=== PATIENT | female | born 1980 | race Caucasian/White ===

== ENCOUNTER 2019-11-04 10:55 | Emergency (ER) | payer MEDICAID ==
--- NOTE | 2019-11-04 11:53 | ER Document Report ---
ED Medical Screen (RME) - General Chief Complaint: Vaginal Bleeding Stated Complaint: VAGINAL BLEEDING Time Seen by Provider: 11/04/19 11:48 Primary Care Provider: ROBERTO HERNANDEZ MD [Primary Care Provider] - Follow up as needed - HPI Notes: 11/04/19 11:52 39-year-old female 4 para 3, 7 weeks presents emergency room with light brown spotting that started last night with spotting today. Patient states that she is used 1 mini pad. Denies any fevers or chills. Eating and drinking without any issues. Denies prior history of miscarriage. Denies any abdominal pain, lower back pain. Denies any chest pain or shortness of breath, no nausea vomiting or diarrhea I have greeted and performed a rapid initial assessment of this patient. A comprehensive ED assessment and evaluation of the patient, analysis of test results and completion of the medical decision making process will be conducted by additional ED providers. PHYSICAL EXAMINATION: GENERAL: Well-appearing, well-nourished and in no acute distress. CV: s1, s2 regular LUNGS: No respiratory distress NEUROLOGICAL: Normal speech, normal gait. SKIN: Warm, Dry, normal turgor, no rashes or lesions noted. Physical Exam - Vital signs Vitals: Temp Pulse Resp BP Pulse Ox 98.4 F 91 18 153/74 H 100 11/04/19 11:13 11/04/19 11:13 11/04/19 11:13 11/04/19 11:13 11/04/19 11:13 Course - Vital Signs Vital signs: Temp Pulse Resp BP Pulse Ox 98.4 F 91 18 153/74 H 100 11/04/19 11:13 11/04/19 11:13 11/04/19 11:13 11/04/19 11:13 11/04/19 11:13 Doctor's Discharge - Discharge Referrals: ROBERTO HERNANDEZ MD [Primary Care Provider] - Follow up as needed
[2019-11-04 13:01] LABS: ABSOLUTE LYMPHOCYTES (AUTO) 1.1 10^3/uL (0.5-4.7); ABSOLUTE MONOCYTES (AUTO) 0.4 10^3/uL (0.1-1.4); ABSOLUTE NEUT (AUTO) 6.7 10^3/uL (1.7-8.2); BASOPHILS % (AUTO) 0.5 % (0-2); EOSINOPHILS % (AUTO) 0.3 % (0-6); HEMATOCRIT 41.6 % (36.0-47.0); HEMOGLOBIN 14.8 g/dL (12.0-15.5); LYMPHOCYTES % (AUTO) 12.8 % (13-45); MEAN CORPUSCULAR HEMOGLOBIN 33.2 pg (27.0-33.4); MEAN CORPUSCULAR HGB CONC 35.7 g/dL (32.0-36.0); MEAN CORPUSCULAR VOLUME 93 fl (80-97); MONOCYTES % (AUTO) 5.4 % (3-13); PLATELET COUNT 298 10^3/uL (150-450); RED BLOOD COUNT 4.47 10^6/uL (3.72-5.28); RED CELL DISTRIBUTION WIDTH 12.8 % (11.5-14.0); TOTAL CELLS COUNTED % (AUTO) 100 %; WHITE BLOOD COUNT 8.3 10^3/uL (4.0-10.5)
[2019-11-04 13:15] LABS: APPEARANCE,URINE CLEAR; BILIRUBIN,URINE NEGATIVE (NEGATIVE); GLUCOSE, URINE NEGATIVE (NEGATIVE); KETONES,URINE 20 mg/dL (NEGATIVE); LEUKOCYTE ESTERASE,URINE TRACE (NEGATIVE); NITRITE,URINE NEGATIVE (NEGATIVE); PROTEIN,URINE 100 mg/dL (NEGATIVE); URINE SPECIFIC GRAVITY 1.015; UROBILINOGEN,URINE NEGATIVE mg/dL (<2.0)
[2019-11-04 13:16] LABS: COLOR,URINE RED
[2019-11-04 13:30] LABS: ALBUMIN 4.9 g/dL (3.5-5.0); ALKALINE PHOSPHATASE 60 U/L (38-126); ANION GAP 9 (5-19); ASPARTATE AMINO TRANSFERASE 24 U/L (14-36); BILIRUBIN,TOTAL 0.6 mg/dL (0.2-1.3); BLOOD UREA NITROGEN 9 mg/dL (7-20); CARBON DIOXIDE 27 mmol/L (22-30); CHLORIDE 104 mmol/L (98-107); GLUCOSE 102 mg/dL (75-110); POTASSIUM 4.8 mmol/L (3.6-5.0); TOTAL PROTEIN 7.5 g/dL (6.3-8.2)
--- NOTE | 2019-11-04 13:43 | RADIOLOGY REPORT (SQ) ---
EXAM DESCRIPTION: U/S OB TRANSVAG W/DOPPLER COMPLETED DATE/TIME: 11/04/2019 1:29 pm REASON FOR STUDY: 7 weeks preg with spotting COMPARISON: None. TECHNIQUE: Endovaginal static and realtime grayscale images acquired of the pelvis. Additional selec treva spectral and color Doppler images recorded. All images stored on PACs. bHCG: Pending CLINICAL DATES: Last menses 09/20/2019 LIMITATIONS: None. FINDINGS: UTERUS: No visualized intrauterine . Uterus is 8 x 5 x 5 cm in size. Endometrial stripe is heterogeneous, 10 mm in thickness. No intrauterine gestational sac is identifi ed. RIGHT ADNEXA: Normal ovary with normal vascular flow. Right ovary is 3.3 x 1.8 x 1.4 cm. No adnexal free fluid.No adnexal masses. LEFT ADNEXA: Normal ovary with normal vascular flow. Left ovary is 3.5 x 2.8 x 2.3 cm in size with a 2 cm ovarian cyst, and 1.4 cm cyst. No adnexal free fluid.No adnexal masses. FREE FLUID: None. OTHER: No other significant finding. IMPRESSION: NO VISUALIZED INTRA- OR EXTRAUTERINE . No beta HCG for correlation ECTOPIC CANNOT BE EXCLUDED. FOLLOW-UP ULTRASOUND AND SERIAL BHCG LEVELS STRONGLY RECOMMENDED TO ACCURATELY ASSESS STATU S. Findings discussed with Dr. Nick in the emergency room TECHNICAL DOCUMENTATION: JOB ID: [id number] [employer]- All Rights Reserved Reading location - IP/workstation name: [email or web address]
--- NOTE | 2019-11-04 14:14 | ER Document Report ---
ED General - General Chief Complaint: Vaginal Bleeding Stated Complaint: VAGINAL BLEEDING Time Seen by Provider: 11/04/19 11:48 Primary Care Provider: ROBERTO HERNANDEZ MD [Primary Care Provider] - Follow up as needed Mode of Arrival: Ambulatory Information source: Patient TRAVEL OUTSIDE OF THE [place] IN LAST 30 DAYS: No - HPI Notes: Patient presents with abdominal cramping and bleeding. She states that started yesterday and has progressed today. The cramping has become more severe. It is moderate in intensity. It is constant. It is in the lower abdomen and radiates across the lower abdomen. She states the bleeding has also increased in intensity and is now about the level of her menstrual cycle. Patient states she has been 4 times total. This is time #4. The other 3 pregnancies were all carried to term without problem. She has not noticed any significant products that look like tissue. She states she has had some clots. Patient states that her last period was in the middle of September 2019. 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 - Related Data Allergies/Adverse Reactions: No Known Allergies Allergy (Unverified 11/04/19 11:54) Home Medications: cymbalta Past Medical History - General Information source: Patient - Social History Smoking Status: Never Smoker Chew tobacco use (# tins/day): No Frequency of alcohol use: None Drug Abuse: None Family History: Reviewed & Not Pertinent Patient has suicidal ideation: No Patient has homicidal ideation: No Past Surgical History: Reports: Hx Neurologic Surgery - brain surgery 2017 Review of Systems - Review of Systems Constitutional: denies: Chills, Fever Cardiovascular: denies: Chest pain, Palpitations Respiratory: denies: Cough, Short of breath -: Yes All other systems reviewed and negative Physical Exam - Vital signs Vitals: Temp Pulse Resp BP Pulse Ox 98.4 F 91 18 153/74 H 100 11/04/19 11:13 11/04/19 11:13 11/04/19 11:13 11/04/19 11:13 11/04/19 11:13 Interpretation: Normal - General General appearance: Appears well, Alert - HEENT Head: Normocephalic, Atraumatic Eyes: Normal Pupils: PERRL - Respiratory Respiratory status: No respiratory distress Chest status: Nontender Breath sounds: Normal Chest palpation: Normal - Cardiovascular Rhythm: Regular Heart sounds: Normal auscultation Murmur: No - Abdominal Inspection: Normal Distension: No distension Bowel sounds: Normal Tenderness: Tender - Mild diffuse tenderness to palpation Organomegaly: No organomegaly - Back Back: Normal, Nontender - Extremities General upper extremity: Normal inspection, Nontender, Normal color, Normal ROM, Normal temperature General lower extremity: Normal inspection, Nontender, Normal color, Normal ROM, Normal temperature, Normal weight bearing. No: Jose's sign - Neurological Neuro grossly intact: Yes Cognition: Normal Orientation: AAOx4 [place] Coma Scale Eye Opening: Spontaneous [place] Coma Scale Verbal: Oriented Laura Coma Scale Motor: Obeys Commands Laura Coma Scale Total: 15 Speech: Normal Motor strength normal: LUE, RUE, LLE, RLE Sensory: Normal - Psychological Associated symptoms: Normal affect, Normal mood - Skin Skin Temperature: Warm Skin Moisture: Dry Skin Color: Normal Course - Re-evaluation Re-evalutation: 11/04/19 15:15 Patient presents with a beta-hCG of 1900. Ultrasound shows no evidence of intra-or extrauterine . Vital signs are stable. Labs are otherwise stable exam shows no evidence of peritoneal signs. Patient does have a urine with many white cells however this is most likely due to the vaginal discharge. She does not have any urinary symptoms. I have discussed the case with the IT COMPLIANCE MANAGER, Dr. Card. She request that the patient has a repeat beta done in the office on 06 November 2019 at 9:30 AM. This is been relayed to the patient and the significant other. - Vital Signs Vital signs: Temp Pulse Resp BP Pulse Ox 98.4 F 91 18 153/74 H 100 11/04/19 11:13 11/04/19 11:13 11/04/19 11:13 11/04/19 11:13 11/04/19 11:13 - Laboratory Result Diagrams: 11/04/19 12:37 11/04/19 12:37 Laboratory results interpreted by me: 11/04/19 11/04/19 11/04/19 12:37 12:37 12:37 Lymph % (Auto) 12.8 L Seg Neutrophils % 81.0 H Creatinine 0.49 L Beta HCG, Quant 1961.80 H Urine Protein 100 H Urine Ketones 20 H Urine Blood LARGE H Ur Leukocyte Esterase TRACE H Urine Ascorbic Acid 20 H - Diagnostic Test Radiology reviewed: Image reviewed, Reports reviewed Discharge - Discharge Clinical Impression: Threatened Condition: Stable Disposition: HOME, SELF-CARE Instructions: Threatened Miscarriage ([facility]) Additional Instructions: Please go to Dr. Johns office in 2 days as scheduled Forms: Return to Work Referrals: KIMBER CARD MD [ACTIVE PROVISIONAL STAFF] - 11/06/19 9:30 am
[2019-11-04] MEDS ORDERED: HYDROMORPHONE HCL INJ/PF 2 MG/ML AMPULE IM ONE (15:33)
[2019-11-04 16:17] VITALS: BP 132/70
== END 2019-11-04 16:17 | disposition home or self-care (01) ==
LOC: ER 10:55
DX: O20.0 Threatened abortion (principal); Z3A.00 Weeks of gestation of pregnancy not specified
CPT/HCPCS: 99283; 96372; 86900; 86901; 36415; 86850; 84702; 85025; 80053; 81001; 76817; 93976; J2790; J1170